=== PATIENT | male | born 1965 | race African-American/Black ===

== ENCOUNTER 2021-09-22 14:58 | Emergency (ER) | payer BC, OTHER ==
[~2021-09-22] VITALS: Ht 172.7 cm; Wt 113.4 kg
--- NOTE | 2021-09-22 15:30 | NUR ---
BIBFamily this 56yo male patient with c/c left knee pain s/p twisted yesterday while walking 02/16 ps. Placed comfortably in bed. Vitals checked.
--- NOTE | 2021-09-22 15:35 | NUR ---
Seen by Dr. Plaza at bedside
--- NOTE | 2021-09-22 16:03 | NUR ---
XRAY OF LEFT KNEE DONE AT BEDSIDE
--- NOTE | 2021-09-22 16:57 | NUR ---
Patient discharged to home in stable condition. Written and verbal after care instructions given. Patient verbalizes understanding of instruction. Picked up by .
[2021-09-22 16:58] VITALS: BP 126/75
== END 2021-09-22 16:59 | disposition home or self-care (01) ==
LOC: ER 15:03
DX: S83.8X2A Sprain of other specified parts of left knee, initial encounter (principal); I10 Essential (primary) hypertension; E11.9 Type 2 diabetes mellitus without complications; X50.1XXA Overexertion from prolonged static or awkward postures, initial encounter; Y93.01 Activity, walking, marching and hiking; Y92.89 Other specified places as the place of occurrence of the external cause; Y99.8 Other external cause status
CPT/HCPCS: 73564-TC